=== PATIENT | male | born 1970 | race Two or more races ===

== ENCOUNTER 2021-03-05 16:51 | Emergency (ER) | payer OTHER ==
[~2021-03-05] VITALS: Ht 162.6 cm; Wt 86.2 kg
[2021-03-05] MEDS ORDERED: XANAX1 MG (16:57)
[2021-03-05] MEDS ORDERED: ATIVAN1 M1 (16:57)
[2021-03-05] MEDS ORDERED: LATUDA20 MG (16:57)
[2021-03-05] MEDS ORDERED: CHILDREN'S ASPI81 MG (16:58)
[2021-03-05] MEDS ORDERED: GABAPENTIN300 M2 (16:58)
== END 2021-03-05 18:45 | disposition home or self-care (01) ==
LOC: ER 16:51
DX: T75.1XXA Unspecified effects of drowning and nonfatal submersion, initial encounter (principal); Y93.89 Activity, other specified; Y92.89 Other specified places as the place of occurrence of the external cause; Y99.8 Other external cause status